=== PATIENT | male | born 1955 | race Caucasian/White ===

== ENCOUNTER 2024-08-05 10:46 | Outpatient (CLI) | payer MEDICARE ==
--- NOTE | 2024-08-05 12:19 | RADIOLOGY REPORT ---
INDICATION: LUMBAR BACK PAIN W/RADICULOPATHY IN LEFT LOWER EXTREMITY COMPARISON: None TECHNIQUE: 3 views of the lumbar spine were obtained. FINDINGS: The lumbar vertebral alignment is normal. Moderate neural foraminal and spinal canal stenosis at L4-L5 through L5-S1. No acute fracture, vertebral compression deformity or aggressive osseous lesions. The paravertebral soft tissues are grossly unremarkable. IMPRESSION: No acute fracture or subluxation.
== END 2024-08-05 23:59 | disposition home or self-care (01) ==
LOC: RAD 10:46
PROVIDERS: ATTEND Family Medicine
DX: M54.16 Radiculopathy, lumbar region (principal); M48.07 Spinal stenosis, lumbosacral region
CPT/HCPCS: 72110